=== PATIENT | male | born 1950 ===

== ENCOUNTER 2020-12-16 00:53 | Inpatient (IN) | payer MEDICARE ==
[2020-12-17] MEDS ORDERED: clonazePAM 0.5 MG TAB PO PRN (01:57)
[2020-12-17] MEDS: traZODone 50 MG TAB PO SCH ×2 (02:46→21:36)
[2020-12-17] MEDS: rOPINIRole 1 MG TAB PO SCH ×2 (02:46→22:31)
[2020-12-17] MEDS: QUEtiapine 100 MG TAB PO SCH ×2 (02:46→21:36)
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
[2020-12-17] MEDS ORDERED: ALBUTEROL 2.5 MG/3 ML NEBU IH PRN (08:24)
[2020-12-17] MEDS: CITALOPRAM 20 MG TAB PO SCH (09:13)
[2020-12-17] MEDS: metOLazone 5 MG TAB PO SCH (09:14)
[2020-12-17] MEDS: TAMSULOSIN 0.4 MG CAP PO SCH (09:14)
[2020-12-17] MEDS: LISINOPRIL 20 MG TAB PO SCH (09:16)
[2020-12-17] MEDS ORDERED: CITALOPRAM 20 MG TAB PO SCH (10:00)
[2020-12-17] MEDS ORDERED: DIVALPROEX DR 125 MG TAB PO SCH (10:00)
[2020-12-17] MEDS ORDERED: ACETAMINOPHEN 325 MG TAB PO PRN (10:00)
[2020-12-17] MEDS: AMOXICILLIN/K CLAV 875/125MG TAB PO SCH ×2 (10:48→21:36)
[2020-12-17] MEDS ORDERED: MAGNESIUM HYDROXIDE (MOM) ORAL LIQD UDC PO PRN (11:00)
[2020-12-17] MEDS ORDERED: MAGNESIUM HYDROXIDE (MOM) ORAL LIQD UDC PO NR (11:00)
[2020-12-17] MEDS ORDERED: NON-FORMULARY EACH (Clonazepam [Klonopin] 1 MG Tablet) PO SCH (22:00)
[2020-12-17] MEDS: oxyCODONE /ACETAMINOPHEN 5-325MG TAB PO PRN (22:07)
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
[2020-12-18] MEDS ORDERED: IPRATROPIUM 0.02% NEBU 2.5 ML IH PRN (00:33)
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
[2020-12-18] MEDS: AMOXICILLIN/K CLAV 875/125MG TAB PO SCH ×2 (10:23→21:11)
[2020-12-18] MEDS: ENOXAPARIN 40 MG/0.4 ML INJ SUB-Q SCH (10:24)
[2020-12-18] MEDS: CITALOPRAM 20 MG TAB PO SCH (10:24)
[2020-12-18] MEDS: metOLazone 5 MG TAB PO SCH (10:25)
[2020-12-18] MEDS: TAMSULOSIN 0.4 MG CAP PO SCH (10:25)
[2020-12-18] MEDS: LISINOPRIL 20 MG TAB PO SCH (10:26)
[2020-12-18 14:15] LABS: Alanine Aminotransferase 15 units/L (7-56); Albumin 3.5 g/dL (3.9-5); BUN/Creatinine Ratio 20; Blood Urea Nitrogen 22 mg/dL (9-20); Calcium 9.2 mg/dL (8.4-10.2); Chol/HDL Ratio 3.48 %; HDL Cholesterol 39 mg/dL (40-59); Hemolysis Index 7; LDL Cholesterol,Direct 91 mg/dL (50-130)
[2020-12-18 14:21] LABS: Basophils % (Auto) 0.4 % (0.0-1.8); Eosinophils # (Auto) 0.4 K/mm3 (0.0-0.4); Eosinophils % (Auto) 4.3 % (0.0-4.3); Hematocrit 39.5 % (35.5-45.6); Hemoglobin 13.2 gm/dl (11.8-15.2); Lymphocytes # (Auto) 1.4 K/mm3 (1.2-5.4); Lymphocytes % (Auto) 16.6 % (13.4-35.0); Mean Corpuscular HGB Conc 33 % (32-34); Mean Corpuscular Volume 89 fl (84-94); Monocytes % (Auto) 12.6 % (0.0-7.3); Platelet Count 333 K/mm3 (140-440); Red Blood Count 4.43 M/mm3 (3.65-5.03); Red Cell Distribution Width 13.6 % (13.2-15.2)
[2020-12-18] MEDS: oxyCODONE /ACETAMINOPHEN 5-325MG TAB PO PRN (16:44)
[2020-12-18] MEDS: MAGNESIUM HYDROXIDE (MOM) ORAL LIQD UDC PO SCH ×2 (21:11→21:54)
[2020-12-18] MEDS: traZODone 50 MG TAB PO SCH (21:13)
[2020-12-18] MEDS: QUEtiapine 100 MG TAB PO SCH (21:13)
[2020-12-18] MEDS: rOPINIRole 1 MG TAB PO SCH (21:14)
[2020-12-18] MEDS ORDERED: rOPINIRole 1 MG TAB PO SCH (22:00)
[2020-12-19] MEDS: oxyCODONE /ACETAMINOPHEN 5-325MG TAB PO PRN ×2 (04:26→16:44)
--- NOTE | 2020-12-19 08:35 | Progress Note ---
Subjective Date of service: 12/19/20 Principal diagnosis: Schizophrenia Subjective Comment: The patient was seen today sitting in the dayroom. He is a/o x 3. He is calm and cooperative. He is talkative. The patient is asking to go home. He is talking about the incident with the police. He says he slept okay. He denies SI/HI or hallucinations of any kind,. REVIEW OF SYSTEMS Constitutional: Negative for weight loss ENT: Negative for stridor Respiratory: Negative for cough or hemoptysis All other systems reviewed and are negative MENTAL STATUS EXAMINATION General Appearance and Behavior: Age appropriate, good hygiene, wearing appropriate clothes,, good eye contact Cooperation: Participating/engaged, but Guarded Psychomotor Behavior: Psychomotor normal Mood:"I feel better but still depressed" Affect and affective range: congruent with mood. Thought Process: illogical Thought Content: hopelessness, helplessness Speech: Normal rate, volume and rythm Intellectual Functioning: Average Suicidal Ideation: SI Homicidal Ideation: Denies HI Impulse Control: Impaired Insight and Judgment: Limited insight and judgment Memory: Normal Attention: Normal Orientation: Alert, oriented. Assessment and Plan (1) Schizophrenia F32.9 (2) Major Depressive Disorder F33.1 Current Visit: Yes Status: Acute Treatment Plan Patient admitted for inpatient psychiatric evaluation, medication adjustment and close monitoring The patient's behavior, mood, sleep and appetite will be closely monitored. Patient enrolled in individual and group therapeutic sessions and encouraged to attend. Patient provided with a safe and structured environment. Patient's physical health needs will be addressed by the Hospitalist. Hospitalist Consulted Labs including CBC, CMP, Lipid profile and Hemoglobin A1C levels ordered for baseline reference Social Assessment will be completed and the Concrete Hopper Operator will work with patient and family to ensure a suitable and safe disposition Medication adjustment will be made as clinically indicated No changes made today Usual Wellness Adventism/Preservation: - Start Trazodone 50 mg po QHS & 50 mg po QHS PRN between 10 PM & 2 AM for insomnia - Start Melatonin 5 mg po QHS to promote circadian rhythm - Start [place]-3 for brain health, reduce impulsivity, and as adjunctive treatment for mood disorder, continue upon discharge given overall benefits. - Start B1 prophylaxis with 200 mg po for 5 days The patient agreed on the treatment plan, understood the risk, benefit, alternative treatment, potential consequence of no treatment, and gave informed consent. Estimated days: 5 Post hospital care: primary care provider, psychiatric provider Medications and Allergies Allergies Allergy/AdvReac Type Severity Reaction Status Date / Time Sulfa (Sulfonamide Allergy Unknown Verified 12/17/20 02:46 Antibiotics) Home Medications Medication Instructions Recorded Confirmed Last Taken Type ALBUTEROL NEB's [Proventil 0.083% 2.5 mg IH QID PRN 12/16/20 12/16/20 Unknown History NEBS] Acetaminophen [Aphen] 650 mg PO Q4HR PRN 12/16/20 12/16/20 Unknown History Amoxicillin/Potassium Clav 1 each PO BID 12/16/20 12/16/20 12/16/20 15:00 History [Augmentin 875-125 Tablet] Citalopram [Celexa] 20 mg PO DAILY 12/16/20 12/16/20 12/15/20 09:06 History Enoxaparin [Lovenox] 40 mg SQ QDAY 12/16/20 12/16/20 12/15/20 09:07 History Fluticasone/Vilanterol [Breo 1 each IH DAILY 12/16/20 12/16/20 Unknown History Ellipta 100-25 Mcg INH] Ipratropium [Atrovent] 0.5 mg IH Q4HR PRN 12/16/20 12/16/20 Unknown History Tamsulosin [Flomax] 0.4 mg PO QDAY 12/16/20 12/16/20 12/15/20 09:06 History Temazepam [Restoril] 7.5 mg PO HS PRN 12/16/20 12/16/20 Unknown History clonazePAM [Klonopin] 1 mg PO HS 12/16/20 12/16/20 Unknown History lisinopriL [Lisinopril] 20 mg PO DAILY 12/16/20 12/16/20 12/15/20 09:06 History metOLazone [Zaroxolyn] 5 mg PO QDAY 12/16/20 12/16/20 12/15/20 11:04 History oxyCODONE /ACETAMINOPHEN [Percocet 5 - 325 mg PO Q4HR PRN 12/16/20 12/16/20 12/16/20 05:50 History 5/325 mg] rOPINIRole [Requip] 2 mg PO QHS 12/16/20 12/16/20 12/14/20 21:37 History traZODone [Desyrel] 50 mg PO QHS 12/16/20 12/16/20 12/13/20 23:43 History Active Meds: Active Medications Acetaminophen (Acetaminophen 325 Mg Tab) 650 mg PO Q4HR PRN PRN Reason: Pain, Mild (1-3) Last Admin: 12/17/20 10:50 Dose: 650 mg Documented by: Albuterol (Albuterol 2.5 Mg/3 Ml Nebu) 2.5 mg IH QID PRN PRN Reason: Wheezing Amoxicillin/Clavulanate Potassium (Amoxicillin/K Clav 875/125mg Tab) 1 each PO BID [facility]; Protocol Last Admin: 12/18/20 21:11 Dose: 1 each Documented by: Citalopram Hydrobromide (Citalopram 20 Mg Tab) 40 mg PO QDAY [facility] Last Admin: 12/18/20 10:24 Dose: 40 mg Documented by: Clonazepam (Clonazepam 0.5 Mg Tab) 1 mg PO QHS PRN PRN Reason: Anxiety Enoxaparin Sodium (Enoxaparin 40 Mg/0.4 Ml Inj) 40 mg SUB-Q QDAY [facility]; Protocol Last Admin: 12/18/20 10:24 Dose: 40 mg Documented by: Ipratropium [place] (Ipratropium 0.02% Nebu 2.5 Ml) 0.5 mg IH Q4HR PRN PRN Reason: Wheezing Lisinopril (Lisinopril 20 Mg Tab) 20 mg PO DAILY [facility] Last Admin: 12/18/20 10:26 Dose: Not Given Documented by: Magnesium Hydroxide (Magnesium Hydroxide (Mom) Oral Liqd Udc) 30 ml PO QHS [facility] Last Admin: 12/18/20 21:54 Dose: Not Given Documented by: Metolazone (Metolazone 5 Mg Tab) 5 mg PO QDAY [facility] Last Admin: 12/18/20 10:25 Dose: 5 mg Documented by: Oxycodone/Acetaminophen (Oxycodone /Acetaminophen 5-325mg Tab) 1 tab PO Q6H PRN PRN Reason: Pain, Moderate (4-6) Last Admin: 12/19/20 04:26 Dose: 1 tab Documented by: Quetiapine Fumarate (Quetiapine 100 Mg Tab) 100 mg PO QHS [facility] Last Admin: 12/18/20 21:13 Dose: 100 mg Documented by: Ropinirole HCl (Ropinirole 1 Mg Tab) 2 mg PO QHS [facility] Last Admin: 12/18/20 21:14 Dose: 2 mg Documented by: Tamsulosin HCl (Tamsulosin 0.4 Mg Cap) 0.4 mg PO QDAY [facility] Last Admin: 12/18/20 10:25 Dose: 0.4 mg Documented by: Trazodone HCl (Trazodone 50 Mg Tab) 50 mg PO QHS [facility] Last Admin: 12/18/20 21:13 Dose: 50 mg Documented by: Results - Results Labs/Vitals: Laboratory Last Values WBC 8.1 K/mm3 (4.5-11.0) 12/18/20 13:20 RBC 4.43 M/mm3 (3.65-5.03) 12/18/20 13:20 Hgb 13.2 gm/dl (11.8-15.2) 12/18/20 13:20 Hct 39.5 % (35.5-45.6) 12/18/20 13:20 MCV 89 fl (84-94) 12/18/20 13:20 MCH 30 pg (28-32) 12/18/20 13:20 MCHC 33 % (32-34) 12/18/20 13:20 RDW 13.6 % (13.2-15.2) 12/18/20 13:20 Plt Count 333 K/mm3 (140-440) 12/18/20 13:20 Lymph % (Auto) 16.6 % (13.4-35.0) 12/18/20 13:20 [place] % (Auto) 12.6 % (0.0-7.3) H 12/18/20 13:20 Eos % (Auto) 4.3 % (0.0-4.3) 12/18/20 13:20 Baso % (Auto) 0.4 % (0.0-1.8) 12/18/20 13:20 Lymph # (Auto) 1.4 K/mm3 (1.2-5.4) 12/18/20 13:20 [place] # (Auto) 1.0 K/mm3 (0.0-0.8) H 12/18/20 13:20 Eos # (Auto) 0.4 K/mm3 (0.0-0.4) 12/18/20 13:20 Baso # (Auto) 0.0 K/mm3 (0.0-0.1) 12/18/20 13:20 Seg Neutrophils % 66.1 % (40.0-70.0) 12/18/20 13:20 Seg Neutrophils # 5.4 K/mm3 (1.8-7.7) 12/18/20 13:20 Sodium 133 mmol/L (137-145) L 12/18/20 13:20 Potassium 4.1 mmol/L (3.6-5.0) 12/18/20 13:20 Chloride 93.7 mmol/L (98-107) L 12/18/20 13:20 Carbon Dioxide 33 mmol/L (22-30) H 12/18/20 13:20 Anion Gap 10 mmol/L 12/18/20 13:20 BUN 22 mg/dL (9-20) H 12/18/20 13:20 Creatinine 1.1 mg/dL (0.8-1.3) 12/18/20 13:20 Estimated GFR > 60 ml/min 12/18/20 13:20 BUN/Creatinine Ratio 20 % 12/18/20 13:20 Glucose 110 mg/dL (75-100) H 12/18/20 13:20 POC Glucose 113 mg/dL (70-105) H 12/18/20 07:34 Hemoglobin A1c 6.0 % (4-6) 12/18/20 13:20 Calcium 9.2 mg/dL (8.4-10.2) 12/18/20 13:20 Total Bilirubin 0.90 mg/dL (0.1-1.2) 12/18/20 13:20 AST 25 units/L (5-40) 12/18/20 13:20 ALT 15 units/L (7-56) 12/18/20 13:20 Alkaline Phosphatase 95 units/L (35-129) 12/18/20 13:20 Total Protein 7.1 g/dL (6.3-8.2) 12/18/20 13:20 Albumin 3.5 g/dL (3.9-5) L 12/18/20 13:20 Albumin/Globulin Ratio 1.0 % 12/18/20 13:20 Triglycerides 77 mg/dL (2-149) 12/18/20 13:20 Cholesterol 136 mg/dL (50-199) 12/18/20 13:20 LDL Cholesterol Direct 91 mg/dL (50-130) 12/18/20 13:20 HDL Cholesterol 39 mg/dL (40-59) L 12/18/20 13:20 Cholesterol/HDL Ratio 3.48 % 12/18/20 13:20 TSH 1.630 mlU/mL (0.270-4.200) 12/18/20 13:20 Last Vital Signs Temp 98.1 F 12/18/20 22:00 Pulse 67 12/18/20 22:00 Resp 15 12/18/20 22:00 BP 125/66 12/18/20 22:00 Pulse Ox 97 12/18/20 22:00
[2020-12-19] MEDS: CITALOPRAM 20 MG TAB PO SCH (10:05)
[2020-12-19] MEDS: metOLazone 5 MG TAB PO SCH (10:05)
[2020-12-19] MEDS: ENOXAPARIN 40 MG/0.4 ML INJ SUB-Q SCH (10:06)
[2020-12-19] MEDS: TIOTROPIUM 18 MCG CAP INHALATION IH SCH (10:06)
[2020-12-19] MEDS: AMOXICILLIN/K CLAV 875/125MG TAB PO SCH ×2 (10:06→21:03)
[2020-12-19] MEDS: TAMSULOSIN 0.4 MG CAP PO SCH (10:07)
[2020-12-19] MEDS: LISINOPRIL 20 MG TAB PO SCH (10:08)
--- NOTE | 2020-12-19 15:46 | Progress Note ---
Assessment and Plan Assessment and plan: --Cellulitis of right arm Current Visit: Yes Status: Acute Plan to address problem: Continue Augmentin for total of 10 days Recheck the wound, wound care --h/o Dog bite Current Visit: Yes Status: Acute Plan to address problem: Continue Augmentin -- h/o COPD (chronic obstructive pulmonary disease) Current Visit: Yes Status: Chronic Plan to address problem: Continue albuterol and Atrovent and Breo Ellipta --HTN (hypertension) Current Visit: Yes Status: Chronic Plan to address problem: Continue antihypertensives and adjust the medications --BPH (benign prostatic hyperplasia) Current Visit: Yes Status: Chronic Plan to address problem: Continue tamsulosin -- DVT prophylaxis Current Visit: Yes Status: Acute Plan to address problem: On Lovenox We will closely monitor the patient and adjust management as needed Call us if you have any questions or concerns History Interval history: I have seen and examined the patient in [facility] psych unit in the activity room this afternoon Patient's chart medications tests and reports reviewed Patient is sitting in a chair not in acute distress Had right forearm dressing changed today No new complaints Vital signs noted Hospitalist Physical - Constitutional Vitals: Temp Pulse Resp BP Pulse Ox 98.0 F 75 18 106/55 96 12/19/20 08:26 12/19/20 10:08 12/19/20 08:26 12/19/20 10:08 12/19/20 08:26 General appearance: Present: no acute distress, well-nourished, obese - EENT Eyes: Present: PERRL, EOM intact - Neck Neck: Present: supple, normal ROM - Respiratory Respiratory effort: normal - Cardiovascular Rhythm: regular Heart Sounds: Present: S1 & S2 - Extremities Extremities: abnormal (Right forearm dressing in place) Extremity abnormal: edema (Mild edema) - Abdominal General gastrointestinal: soft, non-tender, non-distended, normal bowel sounds - Integumentary Integumentary: Present: clear, warm - Psychiatric Psychiatric: appropriate mood/affect, cooperative - Neurologic Neurologic: moves all extremities Results - Labs CBC & Chem 7: 12/18/20 13:20 12/18/20 13:20 Labs: Laboratory Last Values WBC 8.1 K/mm3 (4.5-11.0) 12/18/20 13:20 RBC 4.43 M/mm3 (3.65-5.03) 12/18/20 13:20 Hgb 13.2 gm/dl (11.8-15.2) 12/18/20 13:20 Hct 39.5 % (35.5-45.6) 12/18/20 13:20 MCV 89 fl (84-94) 12/18/20 13:20 MCH 30 pg (28-32) 12/18/20 13:20 MCHC 33 % (32-34) 12/18/20 13:20 RDW 13.6 % (13.2-15.2) 12/18/20 13:20 Plt Count 333 K/mm3 (140-440) 12/18/20 13:20 Lymph % (Auto) 16.6 % (13.4-35.0) 12/18/20 13:20 [place] % (Auto) 12.6 % (0.0-7.3) H 12/18/20 13:20 Eos % (Auto) 4.3 % (0.0-4.3) 12/18/20 13:20 Baso % (Auto) 0.4 % (0.0-1.8) 12/18/20 13:20 Lymph # (Auto) 1.4 K/mm3 (1.2-5.4) 12/18/20 13:20 [place] # (Auto) 1.0 K/mm3 (0.0-0.8) H 12/18/20 13:20 Eos # (Auto) 0.4 K/mm3 (0.0-0.4) 12/18/20 13:20 Baso # (Auto) 0.0 K/mm3 (0.0-0.1) 12/18/20 13:20 Seg Neutrophils % 66.1 % (40.0-70.0) 12/18/20 13:20 Seg Neutrophils # 5.4 K/mm3 (1.8-7.7) 12/18/20 13:20 Sodium 133 mmol/L (137-145) L 12/18/20 13:20 Potassium 4.1 mmol/L (3.6-5.0) 12/18/20 13:20 Chloride 93.7 mmol/L (98-107) L 12/18/20 13:20 Carbon Dioxide 33 mmol/L (22-30) H 12/18/20 13:20 Anion Gap 10 mmol/L 12/18/20 13:20 BUN 22 mg/dL (9-20) H 12/18/20 13:20 Creatinine 1.1 mg/dL (0.8-1.3) 12/18/20 13:20 Estimated GFR > 60 ml/min 12/18/20 13:20 BUN/Creatinine Ratio 20 % 12/18/20 13:20 Glucose 110 mg/dL (75-100) H 12/18/20 13:20 POC Glucose 104 mg/dL (70-105) 12/19/20 07:36 Hemoglobin A1c 6.0 % (4-6) 12/18/20 13:20 Calcium 9.2 mg/dL (8.4-10.2) 12/18/20 13:20 Total Bilirubin 0.90 mg/dL (0.1-1.2) 12/18/20 13:20 AST 25 units/L (5-40) 12/18/20 13:20 ALT 15 units/L (7-56) 12/18/20 13:20 Alkaline Phosphatase 95 units/L (35-129) 12/18/20 13:20 Total Protein 7.1 g/dL (6.3-8.2) 12/18/20 13:20 Albumin 3.5 g/dL (3.9-5) L 12/18/20 13:20 Albumin/Globulin Ratio 1.0 % 12/18/20 13:20 Triglycerides 77 mg/dL (2-149) 12/18/20 13:20 Cholesterol 136 mg/dL (50-199) 12/18/20 13:20 LDL Cholesterol Direct 91 mg/dL (50-130) 12/18/20 13:20 HDL Cholesterol 39 mg/dL (40-59) L 12/18/20 13:20 Cholesterol/HDL Ratio 3.48 % 12/18/20 13:20 TSH 1.630 mlU/mL (0.270-4.200) 12/18/20 13:20 [place]/IV: Voiding Method Toilet Active Medications - Current Medications Current Medications: Generic Name Dose Route Start Last Admin Trade Name Freq PRN Reason Stop Dose Admin Acetaminophen 650 mg 12/17/20 10:00 12/17/20 10:50 Acetaminophen 325 Mg Tab PO 650 mg Q4HR PRN Administration Pain, Mild (1-3) Albuterol 2.5 mg 12/17/20 08:24 Albuterol 2.5 Mg/3 Ml Nebu IH QID PRN Wheezing Amoxicillin/Clavulanate Potassium 1 each 12/17/20 10:00 12/19/20 10:06 Amoxicillin/K Clav 875/125mg Tab PO 1 each BID BRENDA Administration Protocol Citalopram Hydrobromide 40 mg 12/17/20 10:00 12/19/20 10:05 Citalopram 20 Mg Tab PO 40 mg QDAY BRENDA Administration Clonazepam 1 mg 12/17/20 01:57 Clonazepam 0.5 Mg Tab PO QHS PRN Anxiety Enoxaparin Sodium 40 mg 12/18/20 10:00 12/19/20 10:06 Enoxaparin 40 Mg/0.4 Ml Inj SUB-Q 40 mg QDAY BRENDA Administration Protocol Ipratropium [place] 0.5 mg 12/18/20 00:33 Ipratropium 0.02% Nebu 2.5 Ml IH Q4HR PRN Wheezing Lisinopril 20 mg 12/17/20 10:00 12/19/20 10:08 Lisinopril 20 Mg Tab PO Not Given DAILY BRENDA Magnesium Hydroxide 30 ml 12/18/20 22:00 12/18/20 21:54 Magnesium Hydroxide (Mom) Oral Liqd Udc PO Not Given QHS BRENDA Metolazone 5 mg 12/17/20 10:00 12/19/20 10:05 Metolazone 5 Mg Tab PO 5 mg QDAY BRENDA Administration Oxycodone/Acetaminophen 1 tab 12/17/20 01:53 12/19/20 04:26 Oxycodone /Acetaminophen 5-325mg Tab PO 1 tab Q6H PRN Administration Pain, Moderate (4-6) Quetiapine Fumarate 100 mg 12/17/20 01:00 12/18/20 21:13 Quetiapine 100 Mg Tab PO 100 mg QHS BRENDA Administration Ropinirole HCl 2 mg 12/17/20 01:56 12/18/20 21:14 Ropinirole 1 Mg Tab PO 2 mg QHS BRENDA Administration Tamsulosin HCl 0.4 mg 12/17/20 10:00 12/19/20 10:07 Tamsulosin 0.4 Mg Cap PO 0.4 mg QDAY BRENDA Administration Tiotropium [place] 1 puff 12/19/20 09:00 12/19/20 10:06 Tiotropium 18 Mcg Cap Inhalation IH 1 puff Q24HRT BRENDA Administration Trazodone HCl 50 mg 12/17/20 01:00 12/18/20 21:13 Trazodone 50 Mg Tab PO 50 mg QHS BRENDA Administration
[2020-12-19] MEDS: rOPINIRole 1 MG TAB PO SCH (21:03)
[2020-12-19] MEDS: traZODone 50 MG TAB PO SCH (21:03)
[2020-12-19] MEDS: QUEtiapine 100 MG TAB PO SCH (21:03)
[2020-12-19] MEDS: MAGNESIUM HYDROXIDE (MOM) ORAL LIQD UDC PO SCH (21:04)
[2020-12-20] MEDS: oxyCODONE /ACETAMINOPHEN 5-325MG TAB PO PRN ×2 (02:47→15:30)
[2020-12-20] MEDS: AMOXICILLIN/K CLAV 875/125MG TAB PO SCH ×2 (09:11→21:16)
[2020-12-20] MEDS: metOLazone 5 MG TAB PO SCH (09:11)
[2020-12-20] MEDS: CITALOPRAM 20 MG TAB PO SCH (09:11)
[2020-12-20] MEDS: TAMSULOSIN 0.4 MG CAP PO SCH (09:11)
[2020-12-20] MEDS: TIOTROPIUM 18 MCG CAP INHALATION IH SCH (09:12)
[2020-12-20] MEDS: ENOXAPARIN 40 MG/0.4 ML INJ SUB-Q SCH (09:13)
[2020-12-20] MEDS: LISINOPRIL 20 MG TAB PO SCH (09:16)
--- NOTE | 2020-12-20 10:25 | Progress Note ---
Subjective Date of service: 12/20/20 Principal diagnosis: Schizophrenia Subjective Comment: The patient was seen today sitting in the dayroom. He is a/o x 3. He is calm and cooperative. He is talkative. The patient is asking to go home. The patient at times appears to not be upfront about how he really feels. He denies SI/HI, but his mood changes and he gets very down when speaking of his spouse, the strained relationship he has with his step daughter, and the incident with the police. Reason for continued inpatient treatment: The patient appears to be improving, but his mood changes when he's speaking about stressors in his life. Will continue to treat and monitor the patient. SW to also assess outside factor to ensure a safe discharge. REVIEW OF SYSTEMS Constitutional: Negative for weight loss ENT: Negative for stridor Respiratory: Negative for cough or hemoptysis All other systems reviewed and are negative MENTAL STATUS EXAMINATION General Appearance and Behavior: Age appropriate, good hygiene, wearing appropriate clothes,, good eye contact Cooperation: Participating/engaged, but Guarded Psychomotor Behavior: Psychomotor normal Mood:"I feel better but still depressed" Affect and affective range: congruent with mood. Thought Process: goal directed Thought Content: hopelessness, helplessness Speech: Normal rate, volume and rythm Intellectual Functioning: Average Suicidal Ideation: Denies Homicidal Ideation: Denies HI Impulse Control: Impaired Insight and Judgment: Limited insight and judgment Memory: Normal Attention: Normal Orientation: Alert, oriented. Assessment and Plan (1) Schizophrenia F32.9 (2) Major Depressive Disorder F33.1 Current Visit: Yes Status: Acute Treatment Plan Patient admitted for inpatient psychiatric evaluation, medication adjustment and close monitoring The patient's behavior, mood, sleep and appetite will be closely monitored. Patient enrolled in individual and group therapeutic sessions and encouraged to attend. Patient provided with a safe and structured environment. Patient's physical health needs will be addressed by the Hospitalist. Hospitalist Consulted Labs including CBC, CMP, Lipid profile and Hemoglobin A1C levels ordered for baseline reference Social Assessment will be completed and the Game Design Instructor will work with patient and family to ensure a suitable and safe disposition Medication adjustment will be made as clinically indicated No changes made today Usual Wellness Gnosticism/Preservation: - Start Trazodone 50 mg po QHS & 50 mg po QHS PRN between 10 PM & 2 AM for insomnia - Start Melatonin 5 mg po QHS to promote circadian rhythm - Start [place]-3 for brain health, reduce impulsivity, and as adjunctive treatment for mood disorder, continue upon discharge given overall benefits. - Start B1 prophylaxis with 200 mg po for 5 days The patient agreed on the treatment plan, understood the risk, benefit, alternative treatment, potential consequence of no treatment, and gave informed consent. Estimated days: 5 Post hospital care: primary care provider, psychiatric provider Medications and Allergies Allergies Allergy/AdvReac Type Severity Reaction Status Date / Time Sulfa (Sulfonamide Allergy Unknown Verified 12/17/20 02:46 Antibiotics) Home Medications Medication Instructions Recorded Confirmed Last Taken Type ALBUTEROL NEB's [Proventil 0.083% 2.5 mg IH QID PRN 12/16/20 12/16/20 Unknown History NEBS] Acetaminophen [Aphen] 650 mg PO Q4HR PRN 12/16/20 12/16/20 Unknown History Amoxicillin/Potassium Clav 1 each PO BID 12/16/20 12/16/20 12/16/20 15:00 History [Augmentin 875-125 Tablet] Citalopram [Celexa] 20 mg PO DAILY 12/16/20 12/16/20 12/15/20 09:06 History Enoxaparin [Lovenox] 40 mg SQ QDAY 12/16/20 12/16/20 12/15/20 09:07 History Fluticasone/Vilanterol [Breo 1 each IH DAILY 12/16/20 12/16/20 Unknown History Ellipta 100-25 Mcg INH] Ipratropium [Atrovent] 0.5 mg IH Q4HR PRN 12/16/20 12/16/20 Unknown History Tamsulosin [Flomax] 0.4 mg PO QDAY 12/16/20 12/16/20 12/15/20 09:06 History Temazepam [Restoril] 7.5 mg PO HS PRN 12/16/20 12/16/20 Unknown History clonazePAM [Klonopin] 1 mg PO HS 12/16/20 12/16/20 Unknown History lisinopriL [Lisinopril] 20 mg PO DAILY 12/16/20 12/16/20 12/15/20 09:06 History metOLazone [Zaroxolyn] 5 mg PO QDAY 12/16/20 12/16/20 12/15/20 11:04 History oxyCODONE /ACETAMINOPHEN [Percocet 5 - 325 mg PO Q4HR PRN 12/16/20 12/16/20 12/16/20 05:50 History 5/325 mg] rOPINIRole [Requip] 2 mg PO QHS 12/16/20 12/16/20 12/14/20 21:37 History traZODone [Desyrel] 50 mg PO QHS 12/16/20 12/16/20 12/13/20 23:43 History Active Meds: Active Medications Acetaminophen (Acetaminophen 325 Mg Tab) 650 mg PO Q4HR PRN PRN Reason: Pain, Mild (1-3) Last Admin: 12/17/20 10:50 Dose: 650 mg Documented by: Albuterol (Albuterol 2.5 Mg/3 Ml Nebu) 2.5 mg IH QID PRN PRN Reason: Wheezing Amoxicillin/Clavulanate Potassium (Amoxicillin/K Clav 875/125mg Tab) 1 each PO BID [facility]; Protocol Stop: 12/26/20 22:01 Last Admin: 12/20/20 09:11 Dose: 1 each Documented by: Citalopram Hydrobromide (Citalopram 20 Mg Tab) 40 mg PO QDAY [facility] Last Admin: 12/20/20 09:11 Dose: 40 mg Documented by: Clonazepam (Clonazepam 0.5 Mg Tab) 1 mg PO QHS PRN PRN Reason: Anxiety Enoxaparin Sodium (Enoxaparin 40 Mg/0.4 Ml Inj) 40 mg SUB-Q QDAY [facility]; Protocol Last Admin: 12/20/20 09:13 Dose: 40 mg Documented by: Ipratropium [place] (Ipratropium 0.02% Nebu 2.5 Ml) 0.5 mg IH Q4HR PRN PRN Reason: Wheezing Lisinopril (Lisinopril 20 Mg Tab) 20 mg PO DAILY [facility] Last Admin: 12/20/20 09:16 Dose: 20 mg Documented by: Magnesium Hydroxide (Magnesium Hydroxide (Mom) Oral Liqd Udc) 30 ml PO QHS [facility] Last Admin: 12/19/20 21:04 Dose: Not Given Documented by: Metolazone (Metolazone 5 Mg Tab) 5 mg PO QDAY [facility] Last Admin: 12/20/20 09:11 Dose: 5 mg Documented by: Oxycodone/Acetaminophen (Oxycodone /Acetaminophen 5-325mg Tab) 1 tab PO Q6H PRN PRN Reason: Pain, Moderate (4-6) Last Admin: 12/20/20 02:47 Dose: 1 tab Documented by: Quetiapine Fumarate (Quetiapine 100 Mg Tab) 100 mg PO QHS [facility] Last Admin: 12/19/20 21:03 Dose: 100 mg Documented by: Ropinirole HCl (Ropinirole 1 Mg Tab) 2 mg PO QHS [facility] Last Admin: 12/19/20 21:03 Dose: 2 mg Documented by: Tamsulosin HCl (Tamsulosin 0.4 Mg Cap) 0.4 mg PO QDAY [facility] Last Admin: 12/20/20 09:11 Dose: 0.4 mg Documented by: Tiotropium [place] (Tiotropium 18 Mcg Cap Inhalation) 1 puff IH Q24HRT [facility] Last Admin: 12/20/20 09:12 Dose: 1 puff Documented by: Trazodone HCl (Trazodone 50 Mg Tab) 50 mg PO QHS [facility] Last Admin: 12/19/20 21:03 Dose: 50 mg Documented by: Results - Results Labs/Vitals: Laboratory Last Values WBC 8.1 K/mm3 (4.5-11.0) 12/18/20 13:20 RBC 4.43 M/mm3 (3.65-5.03) 12/18/20 13:20 Hgb 13.2 gm/dl (11.8-15.2) 12/18/20 13:20 Hct 39.5 % (35.5-45.6) 12/18/20 13:20 MCV 89 fl (84-94) 12/18/20 13:20 MCH 30 pg (28-32) 12/18/20 13:20 MCHC 33 % (32-34) 12/18/20 13:20 RDW 13.6 % (13.2-15.2) 12/18/20 13:20 Plt Count 333 K/mm3 (140-440) 12/18/20 13:20 Lymph % (Auto) 16.6 % (13.4-35.0) 12/18/20 13:20 [place] % (Auto) 12.6 % (0.0-7.3) H 12/18/20 13:20 Eos % (Auto) 4.3 % (0.0-4.3) 12/18/20 13:20 Baso % (Auto) 0.4 % (0.0-1.8) 12/18/20 13:20 Lymph # (Auto) 1.4 K/mm3 (1.2-5.4) 12/18/20 13:20 [place] # (Auto) 1.0 K/mm3 (0.0-0.8) H 12/18/20 13:20 Eos # (Auto) 0.4 K/mm3 (0.0-0.4) 12/18/20 13:20 Baso # (Auto) 0.0 K/mm3 (0.0-0.1) 12/18/20 13:20 Seg Neutrophils % 66.1 % (40.0-70.0) 12/18/20 13:20 Seg Neutrophils # 5.4 K/mm3 (1.8-7.7) 12/18/20 13:20 Sodium 133 mmol/L (137-145) L 12/18/20 13:20 Potassium 4.1 mmol/L (3.6-5.0) 12/18/20 13:20 Chloride 93.7 mmol/L (98-107) L 12/18/20 13:20 Carbon Dioxide 33 mmol/L (22-30) H 12/18/20 13:20 Anion Gap 10 mmol/L 12/18/20 13:20 BUN 22 mg/dL (9-20) H 12/18/20 13:20 Creatinine 1.1 mg/dL (0.8-1.3) 12/18/20 13:20 Estimated GFR > 60 ml/min 12/18/20 13:20 BUN/Creatinine Ratio 20 % 12/18/20 13:20 Glucose 110 mg/dL (75-100) H 12/18/20 13:20 POC Glucose 106 mg/dL (70-105) H 12/20/20 06:08 Hemoglobin A1c 6.0 % (4-6) 12/18/20 13:20 Calcium 9.2 mg/dL (8.4-10.2) 12/18/20 13:20 Total Bilirubin 0.90 mg/dL (0.1-1.2) 12/18/20 13:20 AST 25 units/L (5-40) 12/18/20 13:20 ALT 15 units/L (7-56) 12/18/20 13:20 Alkaline Phosphatase 95 units/L (35-129) 12/18/20 13:20 Total Protein 7.1 g/dL (6.3-8.2) 12/18/20 13:20 Albumin 3.5 g/dL (3.9-5) L 12/18/20 13:20 Albumin/Globulin Ratio 1.0 % 12/18/20 13:20 Triglycerides 77 mg/dL (2-149) 12/18/20 13:20 Cholesterol 136 mg/dL (50-199) 12/18/20 13:20 LDL Cholesterol Direct 91 mg/dL (50-130) 12/18/20 13:20 HDL Cholesterol 39 mg/dL (40-59) L 12/18/20 13:20 Cholesterol/HDL Ratio 3.48 % 12/18/20 13:20 TSH 1.630 mlU/mL (0.270-4.200) 12/18/20 13:20 Last Vital Signs Temp 97.9 F 12/20/20 08:54 Pulse 66 12/20/20 09:16 Resp 18 12/20/20 08:54 BP 124/54 12/20/20 08:54 Pulse Ox 97 12/20/20 08:54
--- NOTE | 2020-12-20 20:16 | Progress Note ---
Assessment and Plan Assessment and plan: --Schizophrenia; Current Visit: Yes Status: Acute Plan to address problem: Management per psych Management per psych --Cellulitis of right arm Current Visit: Yes Status: Acute Plan to address problem: Continue Augmentin for total of 10 days. Recheck the wound, wound care Elevate the limb --h/o Dog bite Current Visit: Yes Status: Acute Plan to address problem: Continue Augmentin -- h/o COPD (chronic obstructive pulmonary disease) Current Visit: Yes Status: Chronic Plan to address problem: Continue current management --HTN (hypertension) well-controlled Current Visit: Yes Status: Chronic Plan to address problem: Continue current antihypertensives And as needed medications --BPH (benign prostatic hyperplasia) Current Visit: Yes Status: Chronic Plan to address problem: Continue tamsulosin -- DVT prophylaxis Current Visit: Yes Status: Acute Plan to address problem: On Lovenox Continue current management Closely monitor the patient and adjust management as needed Call us with questions History Interval history: I have seen and examined the patient this afternoon in the activity room Patient is having his lunch, no new complaints but anxious to go home No new events reported by the nursing staff Alert and awake responding appropriately Vital signs reviewed stable Hospitalist Physical - Constitutional Vitals: Temp Pulse Resp BP Pulse Ox 97.9 F 66 18 124/54 97 12/20/20 08:54 12/20/20 09:16 12/20/20 08:54 12/20/20 08:54 12/20/20 08:54 General appearance: Present: no acute distress, well-nourished, obese - EENT Eyes: Present: PERRL, EOM intact - Neck Neck: Present: supple, normal ROM - Respiratory Respiratory effort: normal Respiratory: bilateral: diminished, negative: rales, rhonchi, wheezing - Cardiovascular Rhythm: regular Heart Sounds: Present: S1 & S2 - Extremities Extremities: abnormal (Right arm dressing intact mild edema) - Abdominal General gastrointestinal: soft, non-tender, non-distended, normal bowel sounds - Integumentary Integumentary: Present: clear, warm - Psychiatric Psychiatric: appropriate mood/affect, cooperative - Neurologic Neurologic: moves all extremities Results - Labs CBC & Chem 7: 12/18/20 13:20 12/18/20 13:20 Labs: Laboratory Last Values WBC 8.1 K/mm3 (4.5-11.0) 12/18/20 13:20 RBC 4.43 M/mm3 (3.65-5.03) 12/18/20 13:20 Hgb 13.2 gm/dl (11.8-15.2) 12/18/20 13:20 Hct 39.5 % (35.5-45.6) 12/18/20 13:20 MCV 89 fl (84-94) 12/18/20 13:20 MCH 30 pg (28-32) 12/18/20 13:20 MCHC 33 % (32-34) 12/18/20 13:20 RDW 13.6 % (13.2-15.2) 12/18/20 13:20 Plt Count 333 K/mm3 (140-440) 12/18/20 13:20 Lymph % (Auto) 16.6 % (13.4-35.0) 12/18/20 13:20 [place] % (Auto) 12.6 % (0.0-7.3) H 12/18/20 13:20 Eos % (Auto) 4.3 % (0.0-4.3) 12/18/20 13:20 Baso % (Auto) 0.4 % (0.0-1.8) 12/18/20 13:20 Lymph # (Auto) 1.4 K/mm3 (1.2-5.4) 12/18/20 13:20 [place] # (Auto) 1.0 K/mm3 (0.0-0.8) H 12/18/20 13:20 Eos # (Auto) 0.4 K/mm3 (0.0-0.4) 12/18/20 13:20 Baso # (Auto) 0.0 K/mm3 (0.0-0.1) 12/18/20 13:20 Seg Neutrophils % 66.1 % (40.0-70.0) 12/18/20 13:20 Seg Neutrophils # 5.4 K/mm3 (1.8-7.7) 12/18/20 13:20 Sodium 133 mmol/L (137-145) L 12/18/20 13:20 Potassium 4.1 mmol/L (3.6-5.0) 12/18/20 13:20 Chloride 93.7 mmol/L (98-107) L 12/18/20 13:20 Carbon Dioxide 33 mmol/L (22-30) H 12/18/20 13:20 Anion Gap 10 mmol/L 12/18/20 13:20 BUN 22 mg/dL (9-20) H 12/18/20 13:20 Creatinine 1.1 mg/dL (0.8-1.3) 12/18/20 13:20 Estimated GFR > 60 ml/min 12/18/20 13:20 BUN/Creatinine Ratio 20 % 12/18/20 13:20 Glucose 110 mg/dL (75-100) H 12/18/20 13:20 POC Glucose 106 mg/dL (70-105) H 12/20/20 06:08 Hemoglobin A1c 6.0 % (4-6) 12/18/20 13:20 Calcium 9.2 mg/dL (8.4-10.2) 12/18/20 13:20 Total Bilirubin 0.90 mg/dL (0.1-1.2) 12/18/20 13:20 AST 25 units/L (5-40) 12/18/20 13:20 ALT 15 units/L (7-56) 12/18/20 13:20 Alkaline Phosphatase 95 units/L (35-129) 12/18/20 13:20 Total Protein 7.1 g/dL (6.3-8.2) 12/18/20 13:20 Albumin 3.5 g/dL (3.9-5) L 12/18/20 13:20 Albumin/Globulin Ratio 1.0 % 12/18/20 13:20 Triglycerides 77 mg/dL (2-149) 12/18/20 13:20 Cholesterol 136 mg/dL (50-199) 12/18/20 13:20 LDL Cholesterol Direct 91 mg/dL (50-130) 12/18/20 13:20 HDL Cholesterol 39 mg/dL (40-59) L 12/18/20 13:20 Cholesterol/HDL Ratio 3.48 % 12/18/20 13:20 TSH 1.630 mlU/mL (0.270-4.200) 12/18/20 13:20 Stanley/IV: Voiding Method Toilet Active Medications - Current Medications Current Medications: Generic Name Dose Route Start Last Admin Trade Name Freq PRN Reason Stop Dose Admin Acetaminophen 650 mg 12/17/20 10:00 12/17/20 10:50 Acetaminophen 325 Mg Tab PO 650 mg Q4HR PRN Administration Pain, Mild (1-3) Albuterol 2.5 mg 12/17/20 08:24 Albuterol 2.5 Mg/3 Ml Nebu IH QID PRN Wheezing Amoxicillin/Clavulanate Potassium 1 each 12/17/20 10:00 12/20/20 09:11 Amoxicillin/K Clav 875/125mg Tab PO 12/26/20 22:01 1 each BID BRENDA Administration Protocol Citalopram Hydrobromide 40 mg 12/17/20 10:00 12/20/20 09:11 Citalopram 20 Mg Tab PO 40 mg QDAY BRENDA Administration Clonazepam 1 mg 12/17/20 01:57 Clonazepam 0.5 Mg Tab PO QHS PRN Anxiety Enoxaparin Sodium 40 mg 12/18/20 10:00 12/20/20 09:13 Enoxaparin 40 Mg/0.4 Ml Inj SUB-Q 40 mg QDAY BRENDA Administration Protocol Ipratropium [place] 0.5 mg 12/18/20 00:33 Ipratropium 0.02% Nebu 2.5 Ml IH Q4HR PRN Wheezing Lisinopril 20 mg 12/17/20 10:00 12/20/20 09:16 Lisinopril 20 Mg Tab PO 20 mg DAILY BRENDA Administration Magnesium Hydroxide 30 ml 12/18/20 22:00 12/19/20 21:04 Magnesium Hydroxide (Mom) Oral Liqd Udc PO Not Given QHS BRENDA Metolazone 5 mg 12/17/20 10:00 12/20/20 09:11 Metolazone 5 Mg Tab PO 5 mg QDAY BRENDA Administration Oxycodone/Acetaminophen 1 tab 12/17/20 01:53 12/20/20 15:30 Oxycodone /Acetaminophen 5-325mg Tab PO 1 tab Q6H PRN Administration Pain, Moderate (4-6) Quetiapine Fumarate 100 mg 12/17/20 01:00 12/19/20 21:03 Quetiapine 100 Mg Tab PO 100 mg QHS BRENDA Administration Ropinirole HCl 2 mg 12/17/20 01:56 12/19/20 21:03 Ropinirole 1 Mg Tab PO 2 mg QHS BRENDA Administration Tamsulosin HCl 0.4 mg 12/17/20 10:00 12/20/20 09:11 Tamsulosin 0.4 Mg Cap PO 0.4 mg QDAY BRENDA Administration Tiotropium [place] 1 puff 12/19/20 09:00 12/20/20 09:12 Tiotropium 18 Mcg Cap Inhalation IH 1 puff Q24HRT BRENDA Administration Trazodone HCl 50 mg 12/17/20 01:00 12/19/20 21:03 Trazodone 50 Mg Tab PO 50 mg QHS BRENDA Administration
[2020-12-20] MEDS: MAGNESIUM HYDROXIDE (MOM) ORAL LIQD UDC PO SCH (21:15)
[2020-12-20] MEDS: rOPINIRole 1 MG TAB PO SCH (21:16)
[2020-12-20] MEDS: traZODone 50 MG TAB PO SCH (21:16)
[2020-12-20] MEDS: QUEtiapine 100 MG TAB PO SCH (21:16)
[2020-12-21] MEDS: oxyCODONE /ACETAMINOPHEN 5-325MG TAB PO PRN ×2 (04:00→14:02)
[2020-12-21 09:11] VITALS: BP 105/45
[2020-12-21] MEDS: ENOXAPARIN 40 MG/0.4 ML INJ SUB-Q SCH (09:12)
[2020-12-21] MEDS: TIOTROPIUM 18 MCG CAP INHALATION IH SCH (09:13)
[2020-12-21] MEDS: metOLazone 5 MG TAB PO SCH (09:15)
[2020-12-21] MEDS: AMOXICILLIN/K CLAV 875/125MG TAB PO SCH (09:15)
[2020-12-21] MEDS: CITALOPRAM 20 MG TAB PO SCH (09:15)
[2020-12-21] MEDS: TAMSULOSIN 0.4 MG CAP PO SCH (09:15)
[2020-12-21] MEDS: LISINOPRIL 20 MG TAB PO SCH (09:15)
--- NOTE | 2020-12-21 09:19 | Discharge Summary ---
Providers - Providers Date of Admission: 12/17/20 01:03 Date of discharge: 12/21/20 Attending physician: NOHEMY BARRY MD 12/16/20 13:34 Consult to Physician [CONS] Routine Comment: Consulting Provider: MITCH JACKSON Physician Instructions: Reason For Exam: Med Mgt 12/17/20 06:37 Consult to Wound/ET Nurse [CONS] Stat Reason For Exam: wound eval Primary care physician: [facility] Hospitalization Reason for admission: SI Admitting Diagnosis: F20.9 - SCHIZOPHRENIA, UNSPECIFIED Hospital course: The patient was provided inpatient psychiatric treatment with safe and supportive care, medication adjustment, adverse effect monitoring, medical evaluations, medical treatments, assessment and psycho-education. The patient's mood, cognition, behavior, moral support are improved and stabilized. St the time of discharge, the patient had no endangering behavior and no debilitating adverse effects. The patient agreed on potential consequences of no treatment and gave informed consent. Disposition: - TO HOME OR SELFCARE Time spent for discharge: 38 Allergies/Adverse Reactions: Allergies Sulfa (Sulfonamide Antibiotics) Allergy (Verified 12/17/20 02:46) Unknown Vital Signs: Last Vital Signs Temp 97.7 F 12/21/20 09:05 Pulse 64 12/21/20 09:05 Resp 18 12/21/20 09:05 BP 105/45 12/21/20 09:15 Pulse Ox 98 12/21/20 09:05 Last Lab: Laboratory Last Values WBC 8.1 K/mm3 (4.5-11.0) 12/18/20 13:20 RBC 4.43 M/mm3 (3.65-5.03) 12/18/20 13:20 Hgb 13.2 gm/dl (11.8-15.2) 12/18/20 13:20 Hct 39.5 % (35.5-45.6) 12/18/20 13:20 MCV 89 fl (84-94) 12/18/20 13:20 MCH 30 pg (28-32) 12/18/20 13:20 MCHC 33 % (32-34) 12/18/20 13:20 RDW 13.6 % (13.2-15.2) 12/18/20 13:20 Plt Count 333 K/mm3 (140-440) 12/18/20 13:20 Lymph % (Auto) 16.6 % (13.4-35.0) 12/18/20 13:20 [place] % (Auto) 12.6 % (0.0-7.3) H 12/18/20 13:20 Eos % (Auto) 4.3 % (0.0-4.3) 12/18/20 13:20 Baso % (Auto) 0.4 % (0.0-1.8) 12/18/20 13:20 Lymph # (Auto) 1.4 K/mm3 (1.2-5.4) 12/18/20 13:20 [place] # (Auto) 1.0 K/mm3 (0.0-0.8) H 12/18/20 13:20 Eos # (Auto) 0.4 K/mm3 (0.0-0.4) 12/18/20 13:20 Baso # (Auto) 0.0 K/mm3 (0.0-0.1) 12/18/20 13:20 Seg Neutrophils % 66.1 % (40.0-70.0) 12/18/20 13:20 Seg Neutrophils # 5.4 K/mm3 (1.8-7.7) 12/18/20 13:20 Sodium 133 mmol/L (137-145) L 12/18/20 13:20 Potassium 4.1 mmol/L (3.6-5.0) 12/18/20 13:20 Chloride 93.7 mmol/L (98-107) L 12/18/20 13:20 Carbon Dioxide 33 mmol/L (22-30) H 12/18/20 13:20 Anion Gap 10 mmol/L 12/18/20 13:20 BUN 22 mg/dL (9-20) H 12/18/20 13:20 Creatinine 1.1 mg/dL (0.8-1.3) 12/18/20 13:20 Estimated GFR > 60 ml/min 12/18/20 13:20 BUN/Creatinine Ratio 20 % 12/18/20 13:20 Glucose 110 mg/dL (75-100) H 12/18/20 13:20 POC Glucose 162 mg/dL (70-105) H 12/21/20 06:25 Hemoglobin A1c 6.0 % (4-6) 12/18/20 13:20 Calcium 9.2 mg/dL (8.4-10.2) 12/18/20 13:20 Total Bilirubin 0.90 mg/dL (0.1-1.2) 12/18/20 13:20 AST 25 units/L (5-40) 12/18/20 13:20 ALT 15 units/L (7-56) 12/18/20 13:20 Alkaline Phosphatase 95 units/L (35-129) 12/18/20 13:20 Total Protein 7.1 g/dL (6.3-8.2) 12/18/20 13:20 Albumin 3.5 g/dL (3.9-5) L 12/18/20 13:20 Albumin/Globulin Ratio 1.0 % 12/18/20 13:20 Triglycerides 77 mg/dL (2-149) 12/18/20 13:20 Cholesterol 136 mg/dL (50-199) 12/18/20 13:20 LDL Cholesterol Direct 91 mg/dL (50-130) 12/18/20 13:20 HDL Cholesterol 39 mg/dL (40-59) L 12/18/20 13:20 Cholesterol/HDL Ratio 3.48 % 12/18/20 13:20 TSH 1.630 mlU/mL (0.270-4.200) 12/18/20 13:20 Core Measure Documentation - Palliative Care Palliative Care/ Comfort Measures: Not Applicable - Core Measures Any of the following diagnoses?: none Exam - Constitutional Vitals: Temp Pulse Resp BP Pulse Ox 97.7 F 64 18 105/45 98 12/21/20 09:05 12/21/20 09:05 12/21/20 09:05 12/21/20 09:15 12/21/20 09:05 General appearance: Present: no acute distress - EENT Eyes: Present: PERRL, EOM intact ENT: hearing intact, clear oral mucosa - Neck Neck: Present: supple, normal ROM - Respiratory Respiratory effort: normal Plan Activity: advance as tolerated Weight Bearing Status: Weight Bear as Tolerated Care Plan Goals: maintain good and stable mental health Plan of Treatment: The patient should be compliant with medications, not to use drugs, and not to drink alcohol. The patient understands that if suicidal ideas, homicidal ideas or any endangering feeling arise, the patient should seek assistance including, but not limited to crisis hotline, and emergency room. Assessment: Schizophrenia Follow up with: PRIMARY CARE, [Primary Care Provider] - 7 Days Prescriptions: QUEtiapine [SEROquel] 100 mg PO QHS #30 tablet Citalopram [Celexa] 40 mg PO QDAY #60 tablet
== END 2020-12-21 18:18 | disposition home or self-care (01) | DRG 885 ==
LOC: UNDOADMIN 11:36 → 3A 11:36 → 5A 12-17 01:03
PROVIDERS: ADMIT Psychiatry & Neurology Psychiatry; ATTEND Psychiatry & Neurology Psychiatry
DX: F20.9 Schizophrenia, unspecified (principal); L03.113 Cellulitis of right upper limb; E87.1 Hypo-osmolality and hyponatremia; F32.9 Major depressive disorder, single episode, unspecified; J44.9 Chronic obstructive pulmonary disease, unspecified; I10 Essential (primary) hypertension; N40.0 Benign prostatic hyperplasia without lower urinary tract symptoms; S51.851A Open bite of right forearm, initial encounter; W54.0XXA Bitten by dog, initial encounter; Y93.89 Activity, other specified; Z63.4 Disappearance and death of family member; Z79.899 Other long term (current) drug therapy; Z88.2 Allergy status to sulfonamides; Y92.89 Other specified places as the place of occurrence of the external cause; Y99.8 Other external cause status
CPT/HCPCS: 36415; 80053; 80061; 82962; 83036; 84443; 85025; G0378; J1650